=== PATIENT | male | born 1945 | race Caucasian/White ===

== ENCOUNTER 2021-12-05 04:52 | Inpatient (IN) | payer MEDICARE ==
[2021-12-05 06:15] LABS: Actual Bicarbonate (HCO3a) 20.6 mEq/L (22-28); Base Excess (BEa) -1.3 mEq/L (-2.0 to +3.0); CO2 Tension 27.8 mmHg (35.0-45.0); Calcium, Ionized (arterial) 1.17 mmol/L (1.12-1.30); Hemoglobin (Hb) 15.1 g/dL (14.0-18.0); Potassium - ABG Lab 4.1 mmol/L (3.70-5.30); Puncture Site RRA; pH, Arterial 7.49 (7.35-7.45)
[2021-12-05 06:20] LABS: Bilirubin Neg (Negative); Blood, Urine 10 (Negative); Glucose, Urine (Dipstick) Normal (Negative); Ketone, Urine 15 mg/dL (Negative); Leukocyte Negative (Negative); Nitrite Negative (Negative); Protein, Urine (Dipstick) 30 mg/dl (Neg-Trace); Urobilinogen Normal mg/dL (Less than 2)
[2021-12-05 06:27] LABS: Clarity Slightly Cloudy (Clear)
[2021-12-05 06:30] LABS: Squamous Epithelial 0-3 HPF (0-3); WBC/HPF 0-3 HPF (0-3)
[2021-12-05 06:31] LABS: Bacteria/HPF Rare-Few HPF (None Seen)
[2021-12-05 06:38] LABS: #Basophils 0.1 10x3/uL (0.0-0.2); #Monocytes 0.2 10x3/uL (0.0-1.1); #Neutrophils 11.1 10x3/uL (1.5-8.4); %Basophils 0.5 % (0.0-2.0); %Eosinophils 0.2 % (0.0-6.0); %Lymphocytes 5.1 % (18.0-47.0); %Monocytes 1.6 % (0.0-10.0); %Neutrophils 92.3 % (40.0-75.0); Hemoglobin 14.3 g/dL (13.5-17.5); Mean Corpuscular HGB CONC 32.9 g/dL (32.0-36.0); Mean Corpuscular Hemoglobin 28.6 pg (27.0-33.0); Mean Corpuscular Volume 86.8 fl (81.2-95.1); Mean Platelet Volume 10.6 fl (7.4-10.4); Platelet Count 279 10x3/uL (150-450)
[2021-12-05 07:14] LABS: SARS-CoV-2 NAA Rapid Test Not Detected (NotDetected)
[2021-12-05 07:35] LABS: ALT (SGPT) 29 U/L (8-55); AST (SGOT) 24 U/L (5-34); Alkaline Phosphatase 122 U/L (40-110); Anion Gap 15 mmol/L (10-20); BUN (Urea Nitrogen) 12 mg/dL (8.4-25.7); Bilirubin, Total 1.4 mg/dL (0.2-1.2); CK (CPK) 33 U/L (30-200); Calc. Creatinine Clearance 0 mL/min (70-130); Calcium 9.4 mg/dL (7.8-10.44); Carbon Dioxide 25 mmol/L (23-31); Chloride 100 mmol/L (98-107); Globulin 3.1 g/dL (2.4-3.5); Glucose 129 mg/dL (83-110); Magnesium 1.7 mg/dL (1.6-2.6); Potassium 4.1 mmol/L (3.5-5.1); Protein, Total 7.1 g/dL (5.8-8.1); Sodium 136 mmol/L (136-145)
[2021-12-05] MEDS ORDERED: Lorazepam 2 MG/ML VIAL ONE (08:47)
[2021-12-05] MEDS ORDERED: Cefepime 2 GM VIAL ONE (08:48)
[2021-12-05] MEDS ORDERED: Iopamidol 300 61% 100 ML VIAL FS ONE (08:57)
[2021-12-05] MEDS ORDERED: HYDROcodone/Acetaminophen 5/325 mg Tablet PO PRN (09:39)
[2021-12-05] MEDS ORDERED: Acetaminophen 325 MG TAB PO PRN (09:39)
[2021-12-05] MEDS ORDERED: Zolpidem Tartrate 5 MG TAB PO PRN (09:39)
[2021-12-05 09:53] LABS: Actual Bicarbonate (HCO3v) 23 mEq/L (22-28); Base Excess -1.5 mEq/L (-2.0 to +3.0); Calcium, Ionized (venous) 1.13 mmol/L (1.16-1.32); Chloride (VBG) 99 mmol/L (98-106); Hemoglobin (Hb) 15.4 g/dL (12.6-17.4); Potassium (VBG) 4.01 mmol/L (3.70-5.30); Puncture Site Other Site; Sodium 131.8 mmol/L (133-146)
[2021-12-05 11:22] VITALS: BMI 26.7
[2021-12-05] MEDS: cefTRIAXone\\ROCEPHIN 1 GM in Sodium Chloride 0.9% 100 ML IVPB SCH (13:51)
[2021-12-05] MEDS: Azithromycin 500 MG in Sodium Chloride 0.9% 250 ML 250 ML IVPB SCH (13:58)
[2021-12-05] MEDS: Furosemide 40 MG/4 ML VIAL SLOW IVP SCH (14:02)
[2021-12-05] MEDS ORDERED: Albuterol Sulfate 2.5 mg/3 ml Neb NEB PRN (16:00)
[2021-12-05] MEDS: Mometasone 100 MCG/PUFF (1 INHALER) INH SCH (20:26)
[2021-12-05] MEDS: Apixaban 5 MG TAB PO SCH (21:05)
[2021-12-05] MEDS ORDERED: guaiFENesin ER 600 MG TAB PO SCH (23:00)
[2021-12-06 05:02] LABS: #Basophils 0.1 10x3/uL (0.0-0.2); #Eosinphils 0.3 10x3/uL (0.0-0.5); #Monocytes 1.3 10x3/uL (0.0-1.1); #Neutrophils 8.7 10x3/uL (1.5-8.4); %Basophils 0.4 % (0.0-2.0); %Eosinophils 2.5 % (0.0-6.0); %Lymphocytes 13.4 % (18.0-47.0); %Monocytes 10.5 % (0.0-10.0); %Neutrophils 72.9 % (40.0-75.0); Hemoglobin 13.2 g/dL (13.5-17.5); Mean Corpuscular HGB CONC 32.9 g/dL (32.0-36.0); Mean Corpuscular Hemoglobin 28.4 pg (27.0-33.0); Mean Corpuscular Volume 86.2 fl (81.2-95.1); Mean Platelet Volume 9.2 fl (7.4-10.4); Platelet Count 259 10x3/uL (150-450); RBC Distribution Width 13.8 % (11.5-14.5); Red Blood Cell (RBC) Count 4.65 10x6/uL (4.32-5.72); White Blood Cell (WBC) Count 11.9 10x3/uL (3.5-10.5)
[2021-12-06 05:27] LABS: ALT (SGPT) 24 U/L (8-55); AST (SGOT) 23 U/L (5-34); Albumin 3.5 g/dL (3.4-4.8); Alkaline Phosphatase 101 U/L (40-110); Anion Gap 14 mmol/L (10-20); BUN (Urea Nitrogen) 19 mg/dL (8.4-25.7); Bilirubin, Total 1.1 mg/dL (0.2-1.2); Calc. Creatinine Clearance 86 mL/min (70-130); Calcium 9.1 mg/dL (7.8-10.44); Carbon Dioxide 27 mmol/L (23-31); Chloride 99 mmol/L (98-107); Globulin 2.8 g/dL (2.4-3.5); Glucose 108 mg/dL (83-110); Magnesium 1.9 mg/dL (1.6-2.6); Potassium 3.7 mmol/L (3.5-5.1); Protein, Total 6.3 g/dL (5.8-8.1); Sodium 136 mmol/L (136-145)
[2021-12-06] MEDS: Furosemide 40 MG/4 ML VIAL SLOW IVP SCH ×2 (05:50→13:43)
[2021-12-06] MEDS: Mometasone 100 MCG/PUFF (1 INHALER) INH SCH ×2 (08:25→19:43)
[2021-12-06] MEDS ORDERED: Enoxaparin Sodium 40 MG/0.4 ML SYRINGE SC SCH (09:00)
[2021-12-06] MEDS: Stress 600 With Zinc 1 TAB PO SCH (09:58)
[2021-12-06] MEDS: Aspirin 81 mg Enteric Coated Tablet PO SCH (09:58)
[2021-12-06] MEDS: Atorvastatin Calcium 40 MG TAB PO SCH (09:58)
[2021-12-06] MEDS: Escitalopram Oxalate 20 mg Tablet PO SCH (09:58)
[2021-12-06] MEDS: Digoxin 0.125 MG TAB PO SCH (09:59)
[2021-12-06] MEDS: predniSONE 20 MG TAB PO SCH (10:00)
[2021-12-06] MEDS: Tamsulosin HCl 0.4 MG CAP PO SCH (10:00)
[2021-12-06] MEDS: guaiFENesin ER 600 MG TAB PO SCH ×2 (10:00→22:03)
[2021-12-06] MEDS: Apixaban 5 MG TAB PO SCH ×2 (10:01→22:03)
[2021-12-06] MEDS: Azithromycin 500 MG in Sodium Chloride 0.9% 250 ML 250 ML IVPB SCH (13:42)
[2021-12-06] MEDS: cefTRIAXone\\ROCEPHIN 1 GM in Sodium Chloride 0.9% 100 ML IVPB SCH (13:42)
[2021-12-07 04:38] LABS: #Neutrophils 9.6 10x3/uL (1.5-8.4); %Basophils 0.2 % (0.0-2.0); %Eosinophils 0.3 % (0.0-6.0); %Lymphocytes 8.3 % (18.0-47.0); %Monocytes 8.9 % (0.0-10.0); %Neutrophils 81.8 % (40.0-75.0); Hemoglobin 13.8 g/dL (13.5-17.5); Mean Corpuscular HGB CONC 34.3 g/dL (32.0-36.0); Mean Corpuscular Volume 84.5 fl (81.2-95.1); Mean Platelet Volume 9.5 fl (7.4-10.4); Platelet Count 265 10x3/uL (150-450); RBC Distribution Width 13.9 % (11.5-14.5); Red Blood Cell (RBC) Count 4.76 10x6/uL (4.32-5.72); White Blood Cell (WBC) Count 11.7 10x3/uL (3.5-10.5)
[2021-12-07] MEDS: Furosemide 40 MG/4 ML VIAL SLOW IVP SCH ×2 (06:25→13:25)
[2021-12-07] MEDS: Mometasone 100 MCG/PUFF (1 INHALER) INH SCH (07:29)
[2021-12-07] MEDS: predniSONE 20 MG TAB PO SCH (09:31)
[2021-12-07] MEDS: Escitalopram Oxalate 20 mg Tablet PO SCH (09:31)
[2021-12-07] MEDS: guaiFENesin ER 600 MG TAB PO SCH (09:31)
[2021-12-07] MEDS: Stress 600 With Zinc 1 TAB PO SCH (09:31)
[2021-12-07] MEDS: Aspirin 81 mg Enteric Coated Tablet PO SCH (09:31)
[2021-12-07] MEDS: Tamsulosin HCl 0.4 MG CAP PO SCH (09:31)
[2021-12-07] MEDS: Atorvastatin Calcium 40 MG TAB PO SCH (09:31)
[2021-12-07] MEDS: Digoxin 0.125 MG TAB PO SCH (09:32)
[2021-12-07] MEDS: Apixaban 5 MG TAB PO SCH (09:32)
[2021-12-07] MEDS: Azithromycin 500 MG in Sodium Chloride 0.9% 250 ML 250 ML IVPB SCH (13:24)
[2021-12-07] MEDS: cefTRIAXone\\ROCEPHIN 1 GM in Sodium Chloride 0.9% 100 ML IVPB SCH (13:25)
[2021-12-07 13:52] VITALS: BP 118/58; TEMP 96.9
== END 2021-12-07 18:28 | disposition home or self-care (01) | DRG 193 ==
LOC: SUATTDRO 04:52 → CSHERS 04:52 → CSHTELE 11:13
PROVIDERS: ADMIT Internal Medicine; ATTEND Internal Medicine
DX: J18.9 Pneumonia, unspecified organism (principal); J96.01 Acute respiratory failure with hypoxia; G93.41 Metabolic encephalopathy; I50.33 Acute on chronic diastolic (congestive) heart failure; J44.0 Chronic obstructive pulmonary disease with (acute) lower respiratory infection; Z20.822 Contact with and (suspected) exposure to COVID-19; I25.10 Atherosclerotic heart disease of native coronary artery without angina pectoris; I11.0 Hypertensive heart disease with heart failure; N40.0 Benign prostatic hyperplasia without lower urinary tract symptoms; E78.5 Hyperlipidemia, unspecified; Z79.82 Long term (current) use of aspirin; Z79.01 Long term (current) use of anticoagulants; Z79.899 Other long term (current) drug therapy; Z95.1 Presence of aortocoronary bypass graft
CPT/HCPCS: 36415; 36600; 70450; 71045; 71260; 80053; 81003; 81015; 82140; 82550; 82805; 83605; 83735; 83880; 84443; 84484; 85025; 87040; 93005; 93306; 94640; 94664; 94760; 96365; 96375; J0456; J0692; J0696; J1940; J2060; J3370; J3490; J7050; J7512; Q9967

== ENCOUNTER 2022-12-29 21:05 | Emergency (ER) | payer MEDICARE ==
[2022-12-29] MEDS ORDERED: Silver Nitrate Application 1 EACH ONE (22:27)
== END 2022-12-30 | disposition home or self-care (01) ==
LOC: CSHERS 21:05
DX: S01.512A Laceration without foreign body of oral cavity, initial encounter (principal); I25.10 Atherosclerotic heart disease of native coronary artery without angina pectoris; I11.0 Hypertensive heart disease with heart failure; I50.9 Heart failure, unspecified; J44.9 Chronic obstructive pulmonary disease, unspecified; E78.5 Hyperlipidemia, unspecified; X83.8XXA Intentional self-harm by other specified means, initial encounter; Z79.01 Long term (current) use of anticoagulants; Z79.899 Other long term (current) drug therapy; Z79.82 Long term (current) use of aspirin
CPT/HCPCS: 12011

== ENCOUNTER 2023-06-04 02:45 | Emergency (ER) | payer MEDICARE ==
[2023-06-04 03:48] LABS: #Basophils 0.1 10x3/uL (0.0-0.2); #Eosinphils 0.5 10x3/uL (0.0-0.5); #Monocytes 0.9 10x3/uL (0.0-1.1); #Neutrophils 7.4 10x3/uL (1.5-8.4); %Basophils 1.1 % (0.0-2.0); %Eosinophils 4.7 % (0.0-6.0); %Lymphocytes 10.8 % (18.0-47.0); %Monocytes 8.8 % (0.0-10.0); %Neutrophils 74.2 % (40.0-75.0); Hematocrit 39.4 % (38.8-50.0); Hemoglobin 12.9 g/dL (13.5-17.5); Mean Corpuscular HGB CONC 32.7 g/dL (32.0-36.0); Mean Corpuscular Hemoglobin 29.1 pg (27.0-33.0); Mean Corpuscular Volume 88.9 fl (81.2-95.1); Mean Platelet Volume 9.4 fl (7.4-10.4); Platelet Count 216 10x3/uL (150-450); RBC Distribution Width 14.9 % (11.5-14.5); Red Blood Cell (RBC) Count 4.43 10x6/uL (4.32-5.72); White Blood Cell (WBC) Count 9.9 10x3/uL (3.5-10.5)
[2023-06-04 03:59] LABS: Anion Gap 13 mmol/L (10-20); BUN (Urea Nitrogen) 16 mg/dL (8.4-25.7); Calc. Creatinine Clearance 0 mL/min (70-130); Calcium 9.5 mg/dL (7.8-10.44); Carbon Dioxide 28 mmol/L (23-31); Chloride 102 mmol/L (98-107); Estimated GFR 70; Glucose 115 mg/dL (83-110); INR-International Normal Ratio 1.3; PTT 34.1 sec (22.0-33.0); Prothrombin Time 13.9 sec (9.5-12.1); Sodium 139 mmol/L (136-145)
[2023-06-04] MEDS ORDERED: Boostrix 0.5 ML (Tdap) VIAL (>/=7 yrs of age) ONE (04:11)
[2023-06-04] MEDS ORDERED: CEFAZOLIN 2 GM VIAL ONE (04:11)
== END 2023-06-04 07:50 | disposition home or self-care (01) ==
LOC: CSHERS 02:45
DX: S52.021B Displaced fracture of olecranon process without intraarticular extension of right ulna, initial encounter for open fracture type I or II (principal); M97.41XA Periprosthetic fracture around internal prosthetic right elbow joint, initial encounter; I48.91 Unspecified atrial fibrillation; I11.0 Hypertensive heart disease with heart failure; I50.9 Heart failure, unspecified; I25.10 Atherosclerotic heart disease of native coronary artery without angina pectoris; E78.5 Hyperlipidemia, unspecified; J44.9 Chronic obstructive pulmonary disease, unspecified; W17.89XA Other fall from one level to another, initial encounter; Z79.82 Long term (current) use of aspirin; Z79.899 Other long term (current) drug therapy; Z79.01 Long term (current) use of anticoagulants; Z23 Encounter for immunization
CPT/HCPCS: 29125; 36415; 70450; 72125; 80048; 85025; 85610; 85730; 90471; 90715; 94760; 96365

== ENCOUNTER 2023-08-08 11:13 | Emergency (ER) | payer MEDICARE ==
[2023-08-08] MEDS ORDERED: EPINEPHrine 1 MG/ML VIAL ONE (11:35)
[2023-08-08 11:39] LABS: Hematocrit 43.6 % (38.8-50.0); Mean Corpuscular HGB CONC 29.8 g/dL (32.0-36.0); Mean Corpuscular Hemoglobin 27.8 pg (27.0-33.0); Mean Corpuscular Volume 93.4 fl (81.2-95.1); Mean Platelet Volume 10.1 fl (7.4-10.4); Platelet Count 118 10x3/uL (150-450); RBC Distribution Width 15.1 % (11.5-14.5); Red Blood Cell (RBC) Count 4.67 10x6/uL (4.32-5.72); White Blood Cell (WBC) Count 10.4 10x3/uL (3.5-10.5)
[2023-08-08 11:40] LABS: MDiff Complete? YES
[2023-08-08] MEDS ORDERED: Atropine Sulfate 1 mg/10 ml Syringe ONE (11:43)
[2023-08-08 11:44] LABS: ALT (SGPT) 53 U/L (8-55); AST (SGOT) 63 U/L (5-34); Albumin 2.8 g/dL (3.4-4.8); Alkaline Phosphatase 122 U/L (40-110); Anion Gap 22 mmol/L (10-20); BUN (Urea Nitrogen) 19 mg/dL (8.4-25.7); Calc. Creatinine Clearance 0 mL/min (70-130); Calcium 8.5 mg/dL (7.8-10.44); Carbon Dioxide 20 mmol/L (23-31); Chloride 105 mmol/L (98-107); Estimated GFR 59; Globulin 2.1 g/dL (2.4-3.5); Glucose 192 mg/dL (83-110); Potassium 3.6 mmol/L (3.5-5.1); Protein, Total 4.9 g/dL (5.8-8.1); Sodium 143 mmol/L (136-145)
[2023-08-08] MEDS ORDERED: Magnesium 2 GM/50 ML BAG (IN WATER) ONE (11:45)
[2023-08-08 11:48] LABS: Troponin I 0.094 ng/mL (< 0.028)
[2023-08-08 13:00] LABS: Band 23 % (5-11); Eosinophils 1 % (0-10); Lymphocytes 22 % (21-51); Metamyelocyte 1 % (0-0); Monocytes 2 % (0-10); Neutrophil 49 % (42-75); Nucleated RBC (Manual Ct) 1 % (0); Reactive Lymphocytes 2 % (0-10)
[2023-08-08 13:04] LABS: Anisocytosis SLIGHT = 6-15 cells (100X) (0-5/hpf); Platelet Adequacy Comment Appears Decreased
== END 2023-08-08 11:55 | disposition expired ==
LOC: CSHERS 11:13
DX: I46.9 Cardiac arrest, cause unspecified (principal); E87.20 Acidosis, unspecified; R09.02 Hypoxemia; I49.01 Ventricular fibrillation; I11.0 Hypertensive heart disease with heart failure; I50.9 Heart failure, unspecified; J44.9 Chronic obstructive pulmonary disease, unspecified
CPT/HCPCS: 31500; 80053; 84484; 85025; 92950; 93005; 96374; 96375; 96376; 99285; J0171; J0461; 93010; J3475